=== PATIENT | male | born 1950 | race Two or more races ===

== ENCOUNTER 2022-05-03 05:40 | Day surgery (SDC) | payer OTHER ==
[~2022-05-03 05:40] MED LIST: ADULT LOW DOSE81 M1; ATORVASTATIN CA20 MG; METFORMIN; TAGRISSO80 MG PO; TENORMIN25 MG
== END 2022-05-03 15:05 | disposition home or self-care (01) ==
LOC: CIR.AMB 05:40
PROVIDERS: ATTEND Colon & Rectal Surgery
DX: C20 Malignant neoplasm of rectum (principal); Z85.048 Personal history of other malignant neoplasm of rectum, rectosigmoid junction, and anus; I10 Essential (primary) hypertension; Z95.5 Presence of coronary angioplasty implant and graft; J45.909 Unspecified asthma, uncomplicated; E11.9 Type 2 diabetes mellitus without complications

== ENCOUNTER 2022-09-16 10:45 | Inpatient (IN) | payer OTHER ==
[~2022-09-16] VITALS: Ht 172.7 cm; Wt 80.3 kg
[~2022-09-16 10:45] MED LIST changes: -METFORMIN; +METFORMIN PO
[2022-09-16] MEDS ORDERED: TOPROL XL25 M1 PO (12:46)
[2022-09-21] MEDS ORDERED: METFORMIN HCL750 MG (13:06)
== END 2022-09-23 18:07 | disposition home or self-care (01) | DRG 348 ==
LOC: SURH 09-21 08:44 → O/R 09-21 08:44 → SURH 09-21 09:30
PROVIDERS: ADMIT Colon & Rectal Surgery; ATTEND Colon & Rectal Surgery
PROC: 0DJD8ZZ Inspection of Lower Intestinal Tract, Via Natural or Artificial Opening Endoscopic (ICD-10-PCS; 2022-09-21)
PROC: 0DBP7ZZ Excision of Rectum, Via Natural or Artificial Opening (ICD-10-PCS; principal; 2022-09-21 09:30)
DX: C20 Malignant neoplasm of rectum (principal); K92.1 Melena; I11.9 Hypertensive heart disease without heart failure; E11.9 Type 2 diabetes mellitus without complications; Z79.4 Long term (current) use of insulin
CPT/HCPCS: 0184T; 45300; 45130